=== PATIENT | female | born 1980 | race Caucasian/White ===

== ENCOUNTER → 2019-03-15 | Outpatient (CLI) | payer BC | LOC: RAD 12:00 | DX: M47.814 Spondylosis without myelopathy or radiculopathy, thoracic region (principal) ==

== ENCOUNTER 2019-06-01 14:00 | Outpatient (RCR) | payer BC | END 2019-06-01 14:30 | disposition still patient (30) | LOC: PT 14:00 | DX: M47.812 Spondylosis without myelopathy or radiculopathy, cervical region (principal) ==